=== PATIENT | female | born 1980 | race Caucasian/White ===

== ENCOUNTER 2017-01-14 19:41 | Emergency (ER) | payer OTHER ==
[2017-01-14] MEDS ORDERED: HYDROMORPHONE HCL 1 MG/ML SYRINGE ONE (21:54)
[2017-01-14] MEDS ORDERED: ONDANSETRON 4 MG ODT TAB ONE (21:54)
--- NOTE | 2017-01-15 08:06 | RAD ---
EXAMINATION:LUMBAR SPINE ROUTINE 2 3 VWS HISTORY: Sudden onset back pain during exertion. Initial encounter. COMPARISON: None Findings: Vertebral alignment:Normal Vertebral body height:Normal Intervertebral disc spaces:Normal Facets: There is mild facet sclerosis at L4-5 and L5-S1. Adjacent soft tissues:Normal Sacrum and sacroiliac joints:Within normal limits IMPRESSION: Mild spondylosis changes lumbar spine at L4-5 and L5-S1. No displaced fractures identified.
== END 2017-01-14 22:47 | disposition home or self-care (01) ==
LOC: ED 19:41
DX: M54.5 Low back pain (principal); X50.0XXA Overexertion from strenuous movement or load, initial encounter; Y93.H9 Activity, other involving exterior property and land maintenance, building and construction; Y92.9 Unspecified place or not applicable
CPT/HCPCS: 72100; 99283 ×2; 96372; J1170; A9270